=== PATIENT | female | born 1975 | race Caucasian/White ===

== ENCOUNTER 2020-06-07 11:46 | Emergency (ER) | payer MEDICAID ==
[~2020-06-07] VITALS: Ht 160 cm; Wt 70.3 kg
[2020-06-07 11:59] VITALS: Ht 160 cm; Wt 70.3 kg
[2020-06-07 12:55] LABS: BASOPHIL % 0.3 % (0-2); PLATELET COUNT 273 x10^3mcL (130-400); RED CELL DISTRIBUTION WIDTH 12.8 % (11.5-14.5)
[2020-06-07 13:34] VITALS: BP 131/85
== END 2020-06-07 13:34 | disposition home or self-care (01) ==
LOC: ED 11:46
PROVIDERS: Emergency Medicine
DX: D25.9 Leiomyoma of uterus, unspecified (principal); R03.0 Elevated blood-pressure reading, without diagnosis of hypertension; F17.210 Nicotine dependence, cigarettes, uncomplicated; Z86.2 Personal history of diseases of the blood and blood-forming organs and certain disorders involving the immune mechanism; Z88.8 Allergy status to other drugs, medicaments and biological substances
CPT/HCPCS: 99406

== ENCOUNTER 2020-11-15 22:14 | Emergency (ER) | payer MEDICAID ==
[~2020-11-15] VITALS: Ht 160 cm; Wt 68.0 kg
[2020-11-15 22:23] VITALS: BP 170/111; Ht 160 cm; Wt 68.0 kg
[2020-11-16 00:21] LABS: BASOPHIL % 1.5 % (0-2)
[2020-11-16 00:23] LABS: microscopic required? YES; urine erythrocyte NEGATIVE (NEGATIVE)
[2020-11-16 00:24] LABS: RED CELL DISTRIBUTION WIDTH 20.6 % (11.5-14.5)
[2020-11-16 00:32] LABS: PLATELET COUNT 676 x10^3mcL (130-400)
[2020-11-16 00:44] LABS: CALCIUM 8.6 mg/dL (8.5-10.1); CARBON DIOXIDE 27.8 mmol/L (21-32); CHLORIDE SERUM 102 mmol/L (98-107); CREATININE SERUM 0.7 mg/dL (0.6-1.0); GFR1 > 60 mL/min; GLUCOSE SERUM 95 mg/dL (74-106); POTASSIUM SERUM 3.8 mmol/L (3.5-5.1); SODIUM SERUM 136 mmol/L (136-145)
[2020-11-16 00:48] LABS: ALKALINE PHOSPHATASE 75 U/L (46-116); ALT/SGPT 17 U/L (14-59); AST/SGOT 15 U/L (15-37); BILIRUBIN TOTAL 0.4 mg/dL (0.20-1.00); LIPASE 401 IU/L (73-393); TOTAL PROTEIN, SERUM 7.1 g/dL (6.4-8.2)
[2020-11-16 00:51] LABS: ALBUMIN 3.1 g/dL (3.4-5.0)
== END 2020-11-16 01:53 | disposition home or self-care (01) ==
LOC: ED 22:14
PROVIDERS: Emergency Medicine
DX: N83.202 Unspecified ovarian cyst, left side (principal); Z88.8 Allergy status to other drugs, medicaments and biological substances; Z98.890 Other specified postprocedural states